=== PATIENT | male | born 1950 | race Two or more races ===

== ENCOUNTER 2017-02-27 15:24 | Emergency (ER) | payer OTHER ==
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
[2017-02-27 15:34] VITALS: BP 170/101; PULSE 72; TEMP 97.4; BMI 27.1
[2017-02-27] MEDS ORDERED: IBUPROFEN 600 MG TABLET (FP) PO ONE ×2 (16:52→16:54)
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
== END 2017-02-27 16:59 | disposition home or self-care (01) ==
LOC: JERFT 15:24
DX: Z04.1 Encounter for examination and observation following transport accident (principal); V43.52XA Car driver injured in collision with other type car in traffic accident, initial encounter; Y92.488 Other paved roadways as the place of occurrence of the external cause; Y93.89 Activity, other specified
CPT/HCPCS: 99281-25

== ENCOUNTER 2018-12-13 11:48 | Emergency (ER) | payer OTHER ==
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
[2018-12-13 11:55] VITALS: BP 165/99; PULSE 90; TEMP 98.1; BMI 27.3
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
== END 2018-12-13 13:51 | disposition home or self-care (01) ==
LOC: JERFT 11:48
DX: Z04.1 Encounter for examination and observation following transport accident (principal); V49.9XXA Car occupant (driver) (passenger) injured in unspecified traffic accident, initial encounter; Y92.410 Unspecified street and highway as the place of occurrence of the external cause; Y93.89 Activity, other specified; Y99.8 Other external cause status; I10 Essential (primary) hypertension; E78.00 Pure hypercholesterolemia, unspecified
CPT/HCPCS: 99281-25